=== PATIENT | male | born 1975 | race Caucasian/White ===

== ENCOUNTER 2018-11-06 02:22 | Emergency (ER) | payer OTHER ==
[~2018-11-06] VITALS: Ht 170.2 cm; Wt 113.4 kg
[~2018-11-06 02:22] MED LIST: CHANTIX0.5 MG PO; CIPRO500 MG PO; FLOMAX0.4 MG PO; IBUPROFEN 800800 M1 PO; LISINOPRIL20 MG PO; PERCOCET PO
[2018-11-06] MEDS ORDERED: WELLBUTRIN XL300 MG PO (02:44)
[2018-11-06] MEDS ORDERED: ATIVAN1 MG PO (03:04)
[2018-11-06 03:16] VITALS: BP 160/86
== END 2018-11-06 03:16 | disposition home or self-care (01) ==
LOC: M.ERS 02:22
DX: M54.41 Lumbago with sciatica, right side (principal); I10 Essential (primary) hypertension